=== PATIENT | female | born 1930 | race Caucasian/White ===

== ENCOUNTER → 2016-07-01 | Outpatient (CLI) | payer MEDICARE ==
[2016-07-01 11:53] LABS: INFLUENZA VIRUS TYPE A ANTIBOD Negative (NEGATIVE); INFLUENZA VIRUS TYPE B ANTIBOD Negative (NEGATIVE)
== END ==
LOC: LAB 11:23
PROVIDERS: ATTEND Family Medicine
DX: R50.9 Fever, unspecified (principal); J02.9 Acute pharyngitis, unspecified
CPT/HCPCS: 87502; 87651

== ENCOUNTER → 2016-07-13 | Outpatient (REF) | payer MEDICARE ==
[2016-07-13 13:47] LABS: BILIRUBIN,URINE Negative (Negative); CLARITY,URINE Clear; COLOR,URINE Yellow; GLUCOSE, URINE (UA) Negative (Negative); LEUKOCYTE ESTERASE ,URINE Negative (Negative); UROBILINOGEN,URINE 0.2 mg/dL (0.2-1.0)
== END ==
LOC: LAB 13:26
PROVIDERS: ATTEND Family Medicine
DX: N39.0 Urinary tract infection, site not specified (principal)
CPT/HCPCS: 81003

== ENCOUNTER → 2016-08-26 | Outpatient (REF) | payer MEDICARE | LOC: LAB 17:46 | PROVIDERS: ATTEND Family Medicine | DX: N39.0 Urinary tract infection, site not specified (principal) | CPT/HCPCS: 87088 ==

== ENCOUNTER → 2016-08-28 | Outpatient (CLI) | payer MEDICARE | LOC: RAD 11:01 | PROVIDERS: ATTEND Internal Medicine Cardiovascular Disease | DX: I10 Essential (primary) hypertension (principal); R06.02 Shortness of breath | CPT/HCPCS: 93306 ==

== ENCOUNTER → 2016-09-16 | Outpatient (REF) | payer MEDICARE ==
[~2016-09-16] MED LIST: ASPI-894 PO; CALC500T55 PO; DONE10TA5 PO; FURO-125 PO; IBUP-65 PO; LEVO50TA6 PO; LISI1TAB8 PO; MULT-955 PO; OMG1KC PO; RALO60TA PO; ROSU20TA PO; VIT1TABL26 PO
[2016-09-16 12:15] LABS: ANION GAP 14.1 MEQ/L (3-15)
== END ==
LOC: LAB 11:00
PROVIDERS: ATTEND Internal Medicine Cardiovascular Disease
DX: I50.9 Heart failure, unspecified (principal)
CPT/HCPCS: 80048

== ENCOUNTER 2016-09-22 18:02 | Observation (INO) | payer MEDICARE ==
[~2016-09-22] VITALS: Ht 167.6 cm; Wt 72.2 kg
--- OUTSIDE RECORDS SUMMARY | 2016-09-22 18:07 | XMS REPORT | Continuity of Care Document ---
Author Author [facility] Address Unknown Phone Unavailable Allergies Medications Problems Date Dx Coded Attending Type Code Diagnosis Diagnosed By 07/01/2016 Ot V76.12 OT SCREEN MAMMO-MALIGN NEOPLASM OF THOMAS 07/01/2016 Ot 793.82 INCONCLUSIVE MAMMOGRAM 07/01/2016 Ot 733.00 OSTEOPOROSIS NOS 07/01/2016 АННА PEREZ MD Ot 733.00 OSTEOPOROSIS NOS 07/01/2016 АННА PEREZ MD Ot 294.20 DEMENTIA, UNSPECIFIED, WITHOUT BEHAVIORA 07/01/2016 АННА PEREZ MD Ot 780.97 ALTERED MENTAL STATUS 07/01/2016 АННА PEREZ MD Ot 272.4 HYPERLIPIDEMIA NEC/NOS 07/01/2016 АННА PEREZ MD Ot 401.9 HYPERTENSION NOS 07/01/2016 АННА PEREZ MD Ot 733.00 OSTEOPOROSIS NOS 07/06/2016 АННА PEREZ MD Ot J02.9 ACUTE PHARYNGITIS, UNSPECIFIED 07/06/2016 АННА PEREZ MD Ot R50.9 FEVER, UNSPECIFIED 07/17/2016 АННА PEREZ MD Ot N39.0 URINARY TRACT INFECTION, SITE NOT SPECIF 07/23/2016 АННА PEREZ MD Ot J02.9 ACUTE PHARYNGITIS, UNSPECIFIED 07/23/2016 АННА PEREZ MD Ot R50.9 FEVER, UNSPECIFIED 08/05/2016 АННА PEREZ MD Ot N39.0 URINARY TRACT INFECTION, SITE NOT SPECIF 08/26/2016 АННА PEREZ MD Ot N39.0 URINARY TRACT INFECTION, SITE NOT SPECIF 08/26/2016 Ot V76.12 OT SCREEN MAMMO-MALIGN NEOPLASM OF THOMAS 08/26/2016 Ot 793.82 INCONCLUSIVE MAMMOGRAM 08/26/2016 Ot 733.00 OSTEOPOROSIS NOS 08/26/2016 АННА PEREZ MD Ot 733.00 OSTEOPOROSIS NOS 08/26/2016 АННА PEREZ MD Ot 294.20 DEMENTIA, UNSPECIFIED, WITHOUT BEHAVIORA 08/26/2016 АННА PEREZ MD Ot 780.97 ALTERED MENTAL STATUS 08/26/2016 АННА PEREZ MD Ot 272.4 HYPERLIPIDEMIA NEC/NOS 08/26/2016 АННА PEREZ MD Ot 401.9 HYPERTENSION NOS 08/26/2016 АННА PEREZ MD Ot 733.00 OSTEOPOROSIS NOS 08/26/2016 АННА PEREZ MD Ot J02.9 ACUTE PHARYNGITIS, UNSPECIFIED 08/26/2016 АННА PEREZ MD Ot R50.9 FEVER, UNSPECIFIED 08/26/2016 АННА PEREZ MD Ot N39.0 URINARY TRACT INFECTION, SITE NOT SPECIF 08/26/2016 АННА PEREZ MD Ot N39.0 URINARY TRACT INFECTION, SITE NOT SPECIF 08/27/2016 АННА PEREZ MD, Ot N39.0 URINARY TRACT INFECTION, SITE NOT SPECIF 08/27/2016 АННА PEREZ MD, Ot N39.0 URINARY TRACT INFECTION, SITE NOT SPECIF 08/28/2016 SONA ANTONIO, ANDREW S Ot I10 ESSENTIAL (PRIMARY) HYPERTENSION 08/28/2016 Ot V76.12 OTH SCREEN MAMMO-MALIGN NEOPLASM OF THOMAS 08/28/2016 Ot 793.82 INCONCLUSIVE MAMMOGRAM 08/28/2016 Ot 733.00 OSTEOPOROSIS NOS 08/28/2016 АННА PEREZ MD Ot 733.00 OSTEOPOROSIS NOS 08/28/2016 АННА PEREZ MD Ot 294.20 DEMENTIA, UNSPECIFIED, WITHOUT BEHAVIORA 08/28/2016 АННА PEREZ MD Ot 780.97 ALTERED MENTAL STATUS 08/28/2016 АННА PEREZ MD Ot 272.4 HYPERLIPIDEMIA NEC/NOS 08/28/2016 АННА PEREZ MD Ot 401.9 HYPERTENSION NOS 08/28/2016 АННА PEREZ MD Ot 733.00 OSTEOPOROSIS NOS 08/28/2016 АННА PEREZ MD Ot J02.9 ACUTE PHARYNGITIS, UNSPECIFIED 08/28/2016 АННА PEREZ MD Ot R50.9 FEVER, UNSPECIFIED 08/28/2016 АННА PEREZ MD Ot N39.0 URINARY TRACT INFECTION, SITE NOT SPECIF 08/28/2016 АННА PEREZ MD, Ot N39.0 URINARY TRACT INFECTION, SITE NOT SPECIF 08/28/2016 ANDREW MAGALLANES MD Ot I10 ESSENTIAL (PRIMARY) HYPERTENSION 08/29/2016 Ot V76.12 OTH SCREEN MAMMO-MALIGN NEOPLASM OF THOMAS 08/29/2016 Ot 793.82 INCONCLUSIVE MAMMOGRAM 08/29/2016 Ot 733.00 OSTEOPOROSIS NOS 08/29/2016 АННА PEREZ MD Ot 733.00 OSTEOPOROSIS NOS 08/29/2016 АННА PEREZ MD Ot 294.20 DEMENTIA, UNSPECIFIED, WITHOUT BEHAVIORA 08/29/2016 АННА PEREZ MD Ot 780.97 ALTERED MENTAL STATUS 08/29/2016 АННА PEREZ MD Ot 272.4 HYPERLIPIDEMIA NEC/NOS 08/29/2016 АННА PEREZ MD Ot 401.9 HYPERTENSION NOS 08/29/2016 АННА PEREZ MD Ot 733.00 OSTEOPOROSIS NOS 08/29/2016 АННА PEREZ MD Ot J02.9 ACUTE PHARYNGITIS, UNSPECIFIED 08/29/2016 АННА PEREZ MD Ot R50.9 FEVER, UNSPECIFIED 08/29/2016 АННА PEREZ MD Ot N39.0 URINARY TRACT INFECTION, SITE NOT SPECIF 08/29/2016 ANDREW MAGALLANES MD Ot I10 ESSENTIAL (PRIMARY) HYPERTENSION 08/29/2016 АННА PEREZ MD Ot N39.0 URINARY TRACT INFECTION, SITE NOT SPECIF 08/29/2016 ANDREW MAGALLANES MD Ot I10 ESSENTIAL (PRIMARY) HYPERTENSION 08/29/2016 ANDREW MAGALLANES MD Ot I10 ESSENTIAL (PRIMARY) HYPERTENSION 09/01/2016 АННА PEREZ MD Ot N39.0 URINARY TRACT INFECTION, SITE NOT SPECIF Procedures Results Test Result Range Streptococcus pyogenes antigen detection - 07/01/16 11:31 Streptococcus pyogenes antigen detection Negative Negative General health panel - 07/01/16 11:31 Influenza A or B antigen detection by EIA Negative NEGATIVE UA CULTURE IF INDICATED* - 07/13/16 12:45 COLLECTION METHOD CLEAN CATCH Color of urine by auto Yellow Urine appearance determination Clear Urine pH measurement by automated test strip 7.0 5.0 - 8.0 Specific gravity of urine by automated test strip 1.020 1.005-1.030 Urine protein measurement by test strip (mass/volume) Negative Negative Urine glucose detection by automated test strip Negative Negative Urine erythrocytes count by automated test strip (number/volume) Negative Negative Urine ketones detection by automated test strip Negative Negative Urine nitrite detection by test strip Negative Negative Urine total bilirubin detection by automated test strip Negative Negative Urine urobilinogen measurement by automated test strip (mass/volume) 0.2 0.2-1.0 Urine leukocyte esterase detection by dipstick Negative Negative Urine culture - 08/26/16 16:33 Urine culture RENDON FOR RESULTS: * - NEW RESULT - RESULT WAS MODIFIED AFTER FINAL STATUS SET BASIC METABOLIC PANEL* - 09/16/16 10:55 Sodium measurement 94 70-110 CARBON DIOXIDE 29 22-29 Serum or plasma anion gap 14.1 3-15 BLOOD UREA NITROGEN 8 7-18 CREATININE SERUM 0.95 0.6-1.2 Brucella species antibody panel (IgG, IgM) 8 10-20 Estimated glomerular filtration rate (GFR) 67.2 Estimated glomerular filtration rate (GFR) non- 55.5 CALCIUM 9.0 8.8-10.8 Encounters ACCT No. Visit Date/Time Discharge Status Pt. Type Provider Facility Loc./Unit Complaint [id number] 02/27/2014 08:55:00 2013 23:59:59 CLS Outpatient ANA ANTONIO, [facility] RAD OSTEOPEROSIS [id number] 02/01/2014 10:35:00 2013 23:59:59 CLS Outpatient ANA ANTONIO [facility] LAB XIMENA ARMS LAB DROP OFF [id number] 05/30/2013 12:23:00 2012 23:59:59 CLS Outpatient ANA ANTONIO [facility] RAD MENTAL STAUS CHANGE [id number] 02/21/2013 09:51:00 2012 23:59:59 CLS Outpatient ANA ANTONIO [facility] RAD OSTEOPOROSIS 05282 [id number] 09/16/2016 12:19:00 Document Registration [id number] 08/28/2016 11:01:00 ACT Outpatient SONA ANTONIO, ANDREW [facility] RAD HTN I10; SOB R06.02 [id number] 08/26/2016 17:46:00 ACT Outpatient ANA ANTONIO, [facility] LAB DROP OFF PER LENA AND XIMENA DELANEY [id number] 07/13/2016 13:26:00 ACT Outpatient ANA ANTONIO, [facility] LAB LAB DROP OFF FROM XIMENA DELANEY [id number] 07/01/2016 11:23:00 ACT Outpatient ANA ANTONIO, [facility] LAB [id number] 02/16/2012 10:01:00 Document Registration [id number] 12/23/2011 10:08:00 Document Registration [id number] 12/17/2011 14:00:00 Document Registration
[2016-09-22] MEDS ORDERED: ASPI-894 PO (18:09)
[2016-09-22] MEDS ORDERED: MULT-955 PO (18:09)
[2016-09-22] MEDS ORDERED: LISI1TAB8 PO (18:09)
[2016-09-22] MEDS ORDERED: VIT1TABL26 PO (18:09)
[2016-09-22] MEDS ORDERED: RALO60TA PO (18:09)
[2016-09-22] MEDS ORDERED: IBUP-65 PO (18:09)
[2016-09-22] MEDS ORDERED: DONE10TA5 PO (18:09)
[2016-09-22] MEDS ORDERED: LEVO50TA6 PO (18:09)
[2016-09-22] MEDS ORDERED: FURO-125 PO (18:09)
[2016-09-22] MEDS ORDERED: CALC500T55 PO (18:09)
[2016-09-22] MEDS ORDERED: OMG1KC PO (18:09)
[2016-09-22] MEDS ORDERED: ROSU20TA PO (18:09)
[2016-09-22 18:15] VITALS: BP 138/67
[2016-09-22 18:27] VITALS: BP 138/67
--- NOTE | 2016-09-22 18:39 | History and Physical (E) ---
History & Physical PCP: Edson Ham MD CC: Malaise, decreased appetite, weight loss, abdominal pain HPI Raven Garland is a 86 year old female admitted from clinic 09/22 with concern for decline at home. She has had decreased appetite, low energy, abdominal pain , 5 pound weight loss, increased confusion. No reported nausea/vomiting. PCP checked acute abdominal series. Blood was drawn for lab but none were yet run. Because of underlying dementia and her general current debilitated state, PCP asked for direct admit for further workup and management. On arrival to unit, awake, interactive. Vitals normal and stable. She is a poor historian. States her son took her to PCP today but she isn't really sure why. Says she has been feeling fine. Acknowledges low appetite. Denies fatigue or low energy. Denies nausea or vomiting. Denies abdominal pain. Denies dyspnea. No cough. Denies fever or chills. Denies feeling dehydrated. Denies problems with confusion or memory. Denies any other specific complaints. No family is present to provide additional history. PMH * Actinic keratosis * Acute memory impariment * Asteatosis * Bilateral edema of lower extremities * complete heart block * dementia * gastric pain * HLD * HTN * Hypothyroidism * Lentigo * Osteoporosis * Pacemaker * Unintentional weight loss * History of CHF PSH * Pacemaker * Bilateral knee replacement * ALLERGIES: Please see list at end of report. HOME MEDICATIONS: Please see list at end of report. FH Family history of CAD. SH Lives in her own independent apartment at [facility]. Son lives in [place]. . Homemaker. Never smoker. No alcohol. No drugs. ROS Has poor recall: CONSTITUTION: Denies weight loss but PCP feels she has lost 5 pounds. Decreased appetite. HEENT: No change in vision or hearing. No sores in mouth, sore throat. CV: No chest pain, palpitations. PULM: No cough, shortness of breath, difficulty breathing. GI: No upset stomach, nausea, vomiting, constipation, or diarrhea. No blood in stool. : No dysuria. No blood in urine. MS: No new muscle or joint aches and pains. NEURO: No numbness or tingling. No weakness. INTEG: No rashes, lesions, or sores. PSYCH: No change in mood or behavior. OBJECTIVE Temp 97.7 HR 90 RR 19 SpO2 97% RA BP 138/67 GEN: Awake, alert, pleasant and interactive but not a good historian. HEENT: EOMI, clear sclerae, mildly dry oral mucosa. CV: RRR S1 S2 normal with no murmur LUNGS: CTA B with mildly diminished bases but no R/R/W. ABD: Soft, NT/ND with normal bowel sounds. EXTR: No C/C/E. Normal peripheral pulses. INTEG: No rash. Age related changes. Warm, dry, well-perfused. NEURO: No focal motor neuro deficit. Mild psychomotor slowing. Weight: 73.6 kg LABS: PENDING IMAGING 09/22/16 KUB: (Reviewed from office.) Constipation but no obstructive process. ASSESSMENT Raven Pierson is a 86 year old female admitted from clinic 09/22 with malaise, increased confusion, reports of intermittent abdominal pain, decreased appetite , and unintentional weight loss. She had evidence of constipation on x-ray in office but no other workup was yet completed before arrival. PLAN * Malaise: Broad differential. Check labs. Gather additional history from family if available. * Unintentional Weight Loss: Broad differential. Check labs, CXR. Manager Performance for calorie count. Assess food security. * Abdominal Pain: None apparent on admission but has some evidence for constipation. Treat constipation. Acetaminophen for pain. * Deconditioning: PT/OT eval and treat. Request SLUMS, MARLENY. * F/E/N: General diet. I&O, daily weight. Manager Performance consult. * Prophylaxis: Enoxaparin * Code Status: Full * Dispo: Observation, expecting 48 hour stay. CHRONIC ISSUES * Hypothyroidism: Check TSH. Levothyroxine * Dementia: Donepezil * Osteoporosis: Raloxifene * HLD: Atorvastatin (sub for rosuvastatin) * CHF: Uncertain type. Not apparently exacerbated. Not on beta carlos a. Continue lisinopril. Check NT-pro-BNP. * HTN: Lisinopril, HCTZ. Allergies/Home Medications Reported Home Medications Scheduled Aspirin (Efren Chewable) 81 MG PO DAILY@1200 (Reported) Calcium Carbonate (Calcium) 1,000 MG PO DAILY@1200 (Reported) Donepezil HCl (Aricept) 10 MG PO DAILY (Reported) Furosemide (Lasix) 20 MG PO DAILY (Reported) Levothyroxine Sodium (Levothyroxine Sodium) 50 MCG PO DAILY@0700 (Reported) Lisinopril/Hydrochlorothiazide (Lisinopril-HCTZ 20-12.5 mg Tab) 2 TAB PO DAILY@ 1200 (Reported) Multivitamin (Multi-Vitamin Daily) 1 TAB PO DAILY@1200 (Reported) [place] 3 Polyunsat Fatty Acids (Fish Oil) 1,000 MG PO DAILY@1200 (Reported) Raloxifene HCl (Evista) 60 MG PO DAILY@1200 (Reported) Rosuvastatin Calcium (Crestor) 20 MG PO DAILY@1200 (Reported) Vit A,C & E/Lutein/Minerals (Ocuvite Tablet) 1 TAB PO DAILY@1200 (Reported) Scheduled PRN Ibuprofen (Ibuprofen IB) 200-400 MG PO QID PRN PRN PAIN (Reported) Copies to: End of Report . TATE MARTIN MD Sep 22, 2016 18:23
[2016-09-22] MEDS ORDERED: MAGNESIUM HYDROXIDE 80MG/ML (MILK OF MAGNESIA) 30 ML UDC PO PRN (18:45)
[2016-09-22] MEDS ORDERED: PROMETHAZINE HCL INJ 12.5 MG in SODIUM CHLORIDE 25 ML IV PRN (18:45)
[2016-09-22] MEDS ORDERED: ACETAMINOPHEN 325 MG TAB (TYLENOL) PO PRN (18:45)
[2016-09-22] MEDS ORDERED: ONDANSETRON 4 MG (ZOFRAN) ORAL DISSOLVE TAB PO PRN (18:45)
[2016-09-22] MEDS ORDERED: MAG HYDROX/AL HYDROX/SIMETH 200-200-20/5 ML (MAG-AL PLUS) 30 ML UDC PO PRN (18:45)
[2016-09-22] MEDS ORDERED: CALCIUM CARBONATE CHEWABLE 300 MG (TUMS) TABLET PO PRN (18:45)
[2016-09-22] MEDS ORDERED: POLYETHYLENE GLYCOL 17 GM (MIRALAX) PACKET ONE (19:12)
[2016-09-22] MEDS: POLYETHYLENE GLYCOL 17 GM (MIRALAX) PACKET PO SCH (19:15)
[2016-09-22 19:16] LABS: BASOPHILS % (AUTO) 0 % (0-2); EOSINOPHILS % (AUTO) 0 % (0-4); LYMPHOCYTES # (AUTO) 1.3 X10^3; MEAN CORPUSCULAR HEMOGLOBIN 29.1 PG (26.0-34.0); MEAN CORPUSCULAR HGB CONC 32.7 g/dL (31.0-37.0); MEAN CORPUSCULAR VOLUME 89 FL (80-100); MEAN PLATELET VOLUME 10.6 FL (6.0-9.5); MONOCYTES # (AUTO) 0.9 X10^3; MONOCYTES % (AUTO) 7 % (3-11); NEUTROPHILS # (AUTO) 10.7 X10^3; NEUTROPHILS % (AUTO) 83 % (51-67); PLATELET COUNT 360 10^3uL (150-450); WHITE BLOOD COUNT 12.92 10^3uL (4.0-11.0)
[2016-09-22 20:10] LABS: ERYTHROCYTE SEDIMENTATION RT* 72 mm/hr (0-23)
[2016-09-22 20:15] LABS: ANION GAP 19.2 MEQ/L (3-15)
[2016-09-22 20:16] LABS: CALCULATED IONIZED CALCIUM 4.1 mg/dL (3.8-4.6); TOTAL PROTEIN 7.9 g/dL (6.4-8.5)
[2016-09-22 20:17] LABS: ALBUMIN 4.1 g/dL (3.4-5.0)
[2016-09-22] MEDS: DOCUSATE SODIUM 100 MG (COLACE) CAP PO SCH (21:06)
[2016-09-23 00:04] VITALS: BP 97/54
[2016-09-23 05:51] LABS: BILIRUBIN,URINE Negative (Negative); CLARITY,URINE Clear; COLOR,URINE Yellow; GLUCOSE, URINE (UA) Negative (Negative); LEUKOCYTE ESTERASE ,URINE 1+ (Negative); PH,URINE 7.5 (5.0 - 8.0); UROBILINOGEN,URINE 0.2 mg/dL (0.2-1.0)
[2016-09-23] MEDS: LEVOTHYROXINE 50 MCG (LEVOTHROID) TABLET PO SCH (06:04)
[2016-09-23 08:13] LABS: RBC,URINE None Seen /HPF; URINE CENTRIFUGED VOLUME <10mL Unspun
[2016-09-23 08:23] VITALS: BP 130/50
[2016-09-23] MEDS ORDERED: HYDROCHLOROTHIAZIDE 25 MG (HCTZ) TAB PO SCH (09:00)
[2016-09-23 09:06] LABS: BASOPHILS % (AUTO) 0 % (0-2); EOSINOPHILS # (AUTO) 0.1 10^3uL; EOSINOPHILS % (AUTO) 1 % (0-4); LYMPHOCYTES # (AUTO) 1.3 X10^3; MEAN CORPUSCULAR HEMOGLOBIN 28.7 PG (26.0-34.0); MEAN CORPUSCULAR HGB CONC 32.9 g/dL (31.0-37.0); MEAN CORPUSCULAR VOLUME 87 FL (80-100); MEAN PLATELET VOLUME 9.9 FL (6.0-9.5); MONOCYTES # (AUTO) 0.8 X10^3; MONOCYTES % (AUTO) 7 % (3-11); NEUTROPHILS # (AUTO) 9.2 X10^3; NEUTROPHILS % (AUTO) 80 % (51-67); PLATELET COUNT 322 10^3uL (150-450); WHITE BLOOD COUNT 11.52 10^3uL (4.0-11.0)
[2016-09-23] MEDS: OMEGA-3 ACID ETHYL ESTERS 1 GM (LOVAZA) CAPSULE PO SCH (09:25)
[2016-09-23] MEDS: MULTIVITAMIN W/MINERALS (THERAGRAN M) TABLET PO SCH (09:25)
[2016-09-23] MEDS: ATORVASTATIN 10 MG (LIPITOR) TABLET PO SCH (09:26)
[2016-09-23] MEDS: lisINopril 20 MG (PRINIVIL) TABLET PO SCH (09:26)
[2016-09-23] MEDS: DOCUSATE SODIUM 100 MG (COLACE) CAP PO SCH ×2 (09:26→20:13)
[2016-09-23] MEDS: DONEPEZIL 10 MG (ARICEPT) TAB PO SCH (09:26)
[2016-09-23] MEDS: ENOXAPARIN 40 MG/0.4 ML (LOVENOX) SYR SC SCH (09:27)
[2016-09-23] MEDS: POLYETHYLENE GLYCOL 17 GM (MIRALAX) PACKET PO SCH (09:27)
--- NOTE | 2016-09-23 09:28 | Diagnostic Imaging Report ---
INDICATION: Malaise, weight loss. COMPARISON: None available. FINDINGS: Right hemidiaphragm eventration; otherwise, the lung volumes are normal. No focal airspace disease. No pleural effusion or pneumothorax. Cardiomegaly with left pectoral transvenous pacemaker with leads in the right atrium and right ventricle. Atherosclerosis of the aorta. Age related degenerative changes in the spine. IMPRESSION: 1. No acute cardiopulmonary process. 2. Cardiomegaly with left pectoral pacemaker in place. Dictated by: Dictated on workstation # [id number]
[2016-09-23 09:33] LABS: ANION GAP 16.6 MEQ/L (3-15)
--- NOTE | 2016-09-23 10:18 | Progress Note (E) ---
Progress Note SUBJECTIVE Overnight, no major issues. On admit, WBC was 12.92 but this was 11.52 this AM. No bandemia. ESR high at 72. CRP 8.80. K initially low at 2.9 but no intervention was given overnight. Improved spontaneously to 3.2 this AM. Magnesium pending. HCTZ being held. CXR showed no acute changes. SLUMS this AM showed very poor score of 8/30. Son is present and additional history obtained. She lives at [facility] so has plenty of assistance and does not have food insecurity. Has indeed had some constipation. Has had malaise, low appetite, but change has just been over the last week. Not aware of any other complaints. Updated son on findings, plan of care. OBJECTIVE Vital Signs Date Time Temp Pulse Resp B/P Pulse Ox O2 Delivery O2 Flow Rate FiO2 09/23/16 08:23 96.2 69 18 130/50 95 Room air I & O 09/22/16 09/23/16 Cumulative From/Thru 19:00 07:00 09/22/16 18:15 - 09/23/16 06:09 Intake Total 574 ml 574 ml Output Total 50 ml 50 ml Balance 524 ml 524 ml GEN: Sitting in chair. Tired, but pleasant and interactive. HEENT: EOMI, clear sclerae, mildly dry oral mucosa. CV: RRR S1 S2 normal with no murmur LUNGS: CTA B with mildly diminished bases but no R/R/W. ABD: Soft, NT/ND with normal bowel sounds. EXTR: No C/C/E. Normal peripheral pulses. INTEG: No rash. Age related changes. Warm, dry, well-perfused. Dry skin on legs. NEURO: No focal motor neuro deficit. Mild psychomotor slowing. Lab-Past 14 Days, 35 Results 09/22/16 17:12: Alanine Aminotransferase (ALT/SGPT) 38, Albumin 4.1#, Albumin/Globulin Ratio 1.078L, Alkaline Phosphatase 85, Anion Gap 19.2H, Aspartate Amino Transf (AST/ SGOT) 32, BUN/Creatinine Ratio 11, Blood Urea Nitrogen 11, C-Reactive Protein 8.80H, Calcium Level 9.8, Calcium/Ionized Calcium Ratio 4.1, Calculated Osmolality 268L, Carbon Dioxide Level 30H, Chloride Level 93L, Creatinine 0.99, Estimat Glomerular Filtration Rate 64.1, Estimated GFR (Non- 52.9, Glucose Level 104, KS-Auh-S-Type Natriuretic Peptide 243, Potassium Level 2.9L, Sodium Level 139, Thyroid Stimulating Hormone (TSH) 2.17#, Total Bilirubin 0.7#, Total Protein 7.9 09/22/16 17:22: Basophils # (Auto) 0.0, Basophils (%) (Auto) 0, Eosinophils # (Auto) 0.0, Eosinophils (%) (Auto) 0, Erythrocyte Sedimentation Rate 72H, Hematocrit 41.60, Hemoglobin 13.6, Lymphocytes # (Auto) 1.3, Lymphocytes (%) (Auto) 10L, Mean Corpuscular Hemoglobin 29.1, Mean Corpuscular Hemoglobin Concent 32.7, Mean Corpuscular Volume 89, Mean Platelet Volume 10.6H, Monocytes # (Auto) 0.9, Monocytes (%) (Auto) 7, Neutrophils # (Auto) 10.7, Neutrophils (%) (Auto) 83H, Platelet Count 360, Red Blood Count 4.68, Red Cell Distribution Width 13.7, White Blood Count 12.92H 09/23/16 05:20: Urine Bacteria None seen, Urine Bilirubin Negative, Urine Blood Negative, Urine Clarity Clear, Urine Collection Type Clean catch, Urine Color Yellow, Urine Glucose (UA) Negative, Urine Ketones 1+H, Urine Leukocyte Esterase 1+H, Urine Microscopic RBC None seen, Urine Nitrite Negative, Urine Protein Negative, Urine Specific [place] 1.015, Urine Squamous Epithelial Cells 0-2, Urine Urobilinogen 0.2, Urine WBC 5-10H, Urine pH 7.5, Volume Urine Centrifuged <10ml unspun 09/23/16 08:56: Anion Gap 16.6H, BUN/Creatinine Ratio 13, Blood Urea Nitrogen 11, Calcium Level 9.4, Carbon Dioxide Level 30H, Chloride Level 95L, Creatinine 0.84, Estimat Glomerular Filtration Rate 77.4, Estimated GFR (Non- 64.0, Glucose Level 105, Potassium Level 3.2L, Sodium Level 139, Basophils # (Auto) 0.0, Basophils (%) (Auto) 0, Eosinophils # (Auto) 0.1, Eosinophils (%) (Auto) 1 , Hematocrit 39.50, Hemoglobin 13.0, Lymphocytes # (Auto) 1.3, Lymphocytes (%) ( Auto) 11L, Mean Corpuscular Hemoglobin 28.7, Mean Corpuscular Hemoglobin Concent 32.9, Mean Corpuscular Volume 87, Mean Platelet Volume 9.9H, Monocytes # (Auto) 0.8, Monocytes (%) (Auto) 7, Neutrophils # (Auto) 9.2, Neutrophils (%) (Auto) 80H, Platelet Count 322, Red Blood Count 4.53, Red Cell Distribution Width 13.5, White Blood Count 11.52H, Magnesium Level [Pending] IMAGING 09/22/16 CHEST PA/LAT (2 VIEW)* INDICATION: Malaise, weight loss. COMPARISON: None available. FINDINGS: Right hemidiaphragm eventration; otherwise, the lung volumes are normal. No focal airspace disease. No pleural effusion or pneumothorax. Cardiomegaly with left pectoral transvenous pacemaker with leads in the right atrium and right ventricle. Atherosclerosis of the aorta. Age related degenerative changes in the spine. IMPRESSION: 1. No acute cardiopulmonary process. 2. Cardiomegaly with left pectoral pacemaker in place. 09/22/16 KUB: (Reviewed from office.) Constipation but no obstructive process. ASSESSMENT Raven Pierson is a 86 year old female admitted from clinic 09/22 with malaise, increased confusion, reports of intermittent abdominal pain, decreased appetite , and unintentional weight loss. She had evidence of constipation on x-ray in office, had hypokalemia, evidence for mild UTI, and she had elevation of ESR and CRP. PLAN * Malaise: Broad differential. CRP and ESR elevated K is mildly low but otherwise no definitive etiology identified thus far. * Unintentional Weight Loss: Broad differential. Protein and albumin were not low. Hypokalemia noted but other labs reassuring. Reproduction Artist for calorie count. Assess food security. * Leukocytosis, Elevated ESR, Elevated CRP: Uncertain cause. Had 1+ LE on UA but denied dysuria. Treat empirically for UTI x 3 days. If all not improving, consider additional workup. * Simple UTI: On the basis of UA. Allergy to PCN and sulfa noted. Avoid quinolone due to dementia. Cefdinir x 3 days. * Abdominal Pain: None apparent on admission but has some evidence for constipation. Treat constipation. Acetaminophen for pain. * Hypokalemia: Adverse effect from HCTZ? Was reportedly getting furosemide prior to this admit. Hold HCTZ. Check Mg. PO supplement. Monitor trend. * Deconditioning: PT/OT eval and treat. Request DONATO, MARLENY. * F/E/N: General diet. I&O, daily weight. Reproduction Artist consult. * Prophylaxis: Enoxaparin * Code Status: Full * Dispo: Observation, expecting 48 hour stay. May need to make other living arrangements if not safe to return home. CHRONIC ISSUES * Hypothyroidism: TSH normal. Levothyroxine * Dementia: Donepezil * Osteoporosis: Raloxifene * HLD: Atorvastatin (sub for rosuvastatin) * CHF: Uncertain type. Not apparently exacerbated. Not on beta carlos a. Continue lisinopril. NT-pro-BNP not elevated. Check with PCP's office for prior echo. * HTN: Lisinopril, HCTZ. TATE MARTIN MD Sep 23, 2016 10:02
[2016-09-23] MEDS: ASPIRIN 81 MG CHEW (LOW-DOSE) PO SCH (11:34)
[2016-09-23] MEDS: CEFDINIR 300 MG (OMNICEF) CAPSULE PO SCH ×2 (11:34→20:13)
[2016-09-23] MEDS: VIT A,C & E/LUTEIN/MINERALS (I-VITE) TABLET PO SCH (11:34)
[2016-09-23] MEDS: POTASSIUM CHLORIDE ER 20 MEQ TABLET PO SCH ×2 (11:34→18:57)
[2016-09-23] MEDS ORDERED: NON-FORMULARY MEDICATION 1 EA EA (Multivitamin (Multi-Vitamin Daily) 1 TAB) PO SCH (12:00)
[2016-09-23] MEDS ORDERED: NS FLUSH 3 ML PRN IV (12:50)
[2016-09-23] MEDS ORDERED: NS FLUSH 10 ML PRN IV (12:50)
--- NOTE | 2016-09-23 13:02 | Physical Therapy Evaluation(E) ---
Plan of Care STG: Plan-Treatment Functional: Amb Safe w/ AD on level STG Time Frame: 3 Days Goals Discussed/Agreed: Yes Plan: Balance, Endurance, Gait & Transfer Training, Neuro Re-Education, Progressive Ambulation, Transfer Training, Therapy Excercise Discharge Recommendations: TCU/Skilled NH (Patient demonstrates impaired balance, safety awareness and is not safe to return to her prior living situation at this time. She would benefit from additional therapy services. ) Aware of Dx and Prognosis: Yes Aware of Risk & Benefit: Yes To be Seen: Daily Wednesday-Wednesday Initial Evaluation Service Date/Time 09/23/16, 13:01 Primary Diagnosis: (1) Malaise ICD Code: R53.81 (2) Unintentional weight loss ICD Code: R63.4 Treatment Diagnosis: (1) Malaise ICD Code: R53.81 (2) Unintentional weight loss ICD Code: R63.4 Onset Date: 09/22/2016 Start of Care Date: Sep 23, 2016 Precaution/Isolation: Standard Precautions Fall Level: Low Risk 25-50 Initial Assessment Reason for Rehab: Increase Strength, Increase Balance, Increase AROM, Increase Transfers, Increase Endurance Medical History: CHF, Other (complete heart block, lentigo, osteoporosis, pacemaker ) Pain Location/Comment Patient denies pain . Prior Level of Function The patient lives in independent living duplex at [facility]. She denies using and assistive device. This date patient is alert but not oriented to time, date , location. Rehabilitation Potential: Fair Comment Patient is very cooperative with therapy and wants to improve. Assistive Device: Handheld Assist Distance Walked in Feet 122 feet without AD. Assist: Min Assist/Contact Guard Gait Description: Unsteady, Decreased Mily, Slow, Short Step Length, Uneven Weight Shift Gait Limitations: Fatigue, Decreased Strength, Decreased Balance Assessment/Goals Initial Transfer Assessment Rolling: Not Assessed/NA Sit-Supine: Not Assessed/NA Sitting Edge of Bed: Supervision or setup Supine-Sit: Not Assessed/NA Sit-Stand from Bed: Minimal Assistance Stand-Sit: Minimal Assistance Ambulation: Minimal Assistance Distance Walked in Feet 122 feet Transfer Short Term Goals Rolling: Contact Guard Assist Sit-Supine: Contact Guard Assist Sitting Edge of Bed: Modified [place] Supine-Sit: Contact Guard Assist Sit-Stand from bed: Contact Guard Assist Stand-Sit: Contact Guard Assist Ambulation: Contact Guard Assist Distance to Walk in Feet 200 feet with assistive device. Treatments Treatments Repetition: 2 x 10 Exercise: AP, LAQ, Hip Flexion Ambulation Weight Bearing Status: Full Assistive Device: Handheld Assist Gait Assist: Min Assist/Contact Guard Gait Training: Limitations: Fatigue, Decreased Strength, Decreased Balance Coding Time In: 1124 Time Out: 1150 Total Minutes: 26 Charges: 22380 Eval< 20 min, 08539 Gait Training 15 mi Rehab G Codes Current Functional Status: S7370-[place] Current Modifier: CJ 20% but <40% (Patient scores a 17/28 on the Tinetti Balance Assessment. ) Projected Functional Goal: C1725-Oyeyrdme Goal Modifier: CJ 20% but <40% KRISTINA BERG PT Sep 23, 2016 13:02
[2016-09-23 15:09] VITALS: BP 130/90
--- NOTE | 2016-09-23 17:26 | OT Therapy Evaluation (E) ---
POC Plan of Care Problems Identified: Activity Tolerance, ADLs, Balance, Cognition, Judgment, Lt UE Strength, Rt UE Strength, Safety Awareness Plan: Evaluation-OT, ADL/Self Care Management, Therapy Exercises, Therapy Activities, Pt/Family/Staff Education Frequency of OT: Five times weekly Duration of OT: Other (3 days ) Therapy to Include: ADL training, Balance with ADLs, Pt/family education, Therapeutic activities, UE strengthing Discharge Recommendations: Assisted Living Pt would benefit from skilled occupational therapy services to improve independence with self care tasks and increase safety awareness. Pt. Aware of Dx and Prognosis: No Goals: Discussed with patient Short Term Goals STG #1 Pt will participate in 15 min of ther-ex with 4 or less rest breaks. Mcfp Goals LTG Time Frame: 3 Days Will Dress Upper Extremity: Independently Will Dress Lower Extremity: Independently Will Bathe Self: With Setup/SBA Will do Toilet Transfers: With Setup/SBA Will do Toilieting: With Setup/SBA Will Perform Kitchen Mobility: With Setup/SBA LTG # 1 Pt will participate in 5 minute functional standing activity with modified independence and demonstration of good safety awareness. Inital Evaluation/General Service Date/Time 09/23/16, 17:26 Primary Diagnosis: Treatment Diagnosis: Precaution/Isolation: Standard Precautions Fall Level: Low Risk 25-50 Reason for Referral: Cognitive Assmt (SLUMS AND MARLENY), Evaluation and Treat Pertinent Medical History: Other (acute memory impairment, bilateral lower edema, dementia, HLD, HTN, OA, pacemaker) Pain Level: 0 Oxygen Needed: Room air Rehabilitation Potential: Fair Rational for Skilled Treatment: Assistance with ADLs, Deconditioning, Maximize Safety, Prevent Falls Living Status Prior to Admit: Alone (Independent living at the [facility]. [place] stating where she lived. ) Prior Level of Function: Independent ADLs Pt reports son assisting with IADL tasks. Pt reports having a lady come in to help with cooking and cleaning. Says she sometimes eats at the [employer]. Support Persons: Adult Child Entry Into Home: Level Entry Shower and Tub Type: Walk in/curtain-grab bars Toilet Type: Standard with grab bars Comment Pt demonstrated difficulty describing home set up and reports she cannot remember. Pt reports no use of assistive device for functional mobility. No history of recent falls. Current Function Assessment Mental Status Patient Orientation: Person Mental Status: Alert, Confused Cognition Attention: Impaired Memory: Impaired Safety/Judgement: Impaired Assesment and Score: SLUMS (Pt scored a 8/30 demonstrating significant diffuclty with orientation, working memory, delayed recall and visuospatial and executive skills. ) Visual/Perceptual Skills Glassess: Yes Hearing: Impaired Hand Dominance Hand Dominance: Right ROM/Strength Range of Motion : ROM: WNL Strength Comment BUR 4-/5 Neurological Coordination: Minimally impaired Endurance Activity Endurance: Fair Bed Mobility/Transfers Sit to Stand: CGA Chair Transfer: CGA ADLs Hand : Feeding Self: Independent Grooming: Grooming Status: Setup/SBA, Verbal cues Dressing Dressing: Minimum assist, Verbal cues Bathing Shower/Bench Transfer Ability: CGA Bathing- Type of Assistance: Moderate Assist Toileting Toilet Hygiene: Moderate Assist Toilet Transfer Ability: CGA Additional Assessment/Comments The patient presents with decreased strength, decreased safety awareness which impacts patient's ability to complete self care tasks independently and safely. Pt presents with co-morbidities affecting occupational performance. Required no modification of task during evaluation placing pt at a low complexity level. CPT/G Codes Time In: 8:20 Time Out: 8:53 Total Minutes: 33 ( eval) CPT Codes: 50516 Eval< 20 minutes TIAGO DAVID OT Sep 23, 2016 17:26
[2016-09-24 00:23] VITALS: BP 148/65
[2016-09-24] MEDS: LEVOTHYROXINE 50 MCG (LEVOTHROID) TABLET PO SCH (06:06)
[2016-09-24 06:31] LABS: BASOPHILS % (AUTO) 0 % (0-2); EOSINOPHILS # (AUTO) 0.1 10^3uL; EOSINOPHILS % (AUTO) 1 % (0-4); LYMPHOCYTES # (AUTO) 1.3 X10^3; MEAN CORPUSCULAR HEMOGLOBIN 28.7 PG (26.0-34.0); MEAN CORPUSCULAR HGB CONC 32.3 g/dL (31.0-37.0); MEAN CORPUSCULAR VOLUME 89 FL (80-100); MEAN PLATELET VOLUME 10.3 FL (6.0-9.5); MONOCYTES # (AUTO) 0.8 X10^3; MONOCYTES % (AUTO) 8 % (3-11); NEUTROPHILS # (AUTO) 7.6 X10^3; NEUTROPHILS % (AUTO) 77 % (51-67); PLATELET COUNT 314 10^3uL (150-450); WHITE BLOOD COUNT 9.85 10^3uL (4.0-11.0)
[2016-09-24 06:43] LABS: ALBUMIN 3.3 g/dL (3.4-5.0); ANION GAP 13.8 MEQ/L (3-15); MAGNESIUM* 2.4 mg/dL (1.6-2.3)
[2016-09-24 07:51] VITALS: BP 124/46
[2016-09-24] MEDS: OMEGA-3 ACID ETHYL ESTERS 1 GM (LOVAZA) CAPSULE PO SCH (08:17)
[2016-09-24] MEDS: NS FLUSH 3 ML DAILY IV SCH (08:18)
[2016-09-24] MEDS: ENOXAPARIN 40 MG/0.4 ML (LOVENOX) SYR SC SCH (08:18)
[2016-09-24] MEDS: lisINopril 20 MG (PRINIVIL) TABLET PO SCH (08:18)
[2016-09-24] MEDS: CEFDINIR 300 MG (OMNICEF) CAPSULE PO SCH ×2 (08:19→21:05)
[2016-09-24] MEDS: DOCUSATE SODIUM 100 MG (COLACE) CAP PO SCH ×2 (08:19→21:05)
[2016-09-24] MEDS: POTASSIUM CHLORIDE ER 20 MEQ TABLET PO SCH (08:19)
[2016-09-24] MEDS: POLYETHYLENE GLYCOL 17 GM (MIRALAX) PACKET PO SCH (08:19)
[2016-09-24] MEDS: MULTIVITAMIN W/MINERALS (THERAGRAN M) TABLET PO SCH (08:19)
[2016-09-24] MEDS: DONEPEZIL 10 MG (ARICEPT) TAB PO SCH (08:19)
[2016-09-24] MEDS: ATORVASTATIN 10 MG (LIPITOR) TABLET PO SCH (08:19)
[2016-09-24] MEDS: ASPIRIN 81 MG CHEW (LOW-DOSE) PO SCH (12:55)
[2016-09-24] MEDS: VIT A,C & E/LUTEIN/MINERALS (I-VITE) TABLET PO SCH (12:55)
--- NOTE | 2016-09-24 13:54 | PT Daily Note Inpatient (E) ---
PT Daily Treatment Service Date/Time 09/24/16, 13:50 Medical Diagnosis: (1) Malaise ICD Code: R53.81 (2) Unintentional weight loss ICD Code: R63.4 Physical Therapy: (1) Malaise ICD Code: R53.81 (2) Unintentional weight loss ICD Code: R63.4 Precaution/Isolation: Standard Precautions Fall Level: Low Risk 25-50 Subjective Pt just finished lunch, pleasant and cheerful, states she does exercises in her home with friends, agrees to PT Pain Level: 0 Oxygen Delivery: Room air O2 liters/minute: 0 Treatments Sit, Stand, Supine: Sitting, Long Sitting Extremity: Both Lower Extremity Assistance: AROM Repetition: 1 x 15 Exercise: AP, Heel Slides, Hip Abduction, SLR, LAQ, Hip Flexion, External Rotation, Internal Rotation Transfers Supine-Sit: Supervision or setup Sit-Stand from bed: Contact Guard Assist Stand-Sit: Contact Guard Assist Gait Ambulation: Contact Guard Assist Distance Walked: 100' Weight Bearing Status: Full Assistive Device: None (uses handrails prn) Gait Assist: Min Assist/Contact Guard Gait Description: Decreased Mily, Slow, Short Step Length, Flexed Trunk Gait Training: Limitations: Fatigue Education/Plan Assessment Tolerates treatment well, requires tactile cueing for seated exercises Safety Awareness: Impaired Response to Treatment: Improving Plan Cont POC Patient will be seen: Daily Wednesday-Wednesday Discharge Recommendations: Assisted Living Coding Time In: 1324 Time Out: 1347 Total Minutes: 23 Charges: 71428 Exercise Therp BALAJI Villalpando ROLLING CHAIR PUSHER Sep 24, 2016 13:53
[2016-09-24 16:02] VITALS: BP 152/60
--- NOTE | 2016-09-24 16:23 | Progress Note (E) ---
Progress Note SUBJECTIVE Overnight, no major issues reported. Leukocytosis resolved. K improved to 3.4. Urine culture grew normal urogenital johnathan. Vitals remain stable. Has had 4 BM. On exam, resting in chair. Appears tired but stirs readily to exam. She is pleasantly disoriented. Denies any new complaints. Reoriented her to findings and plan of care. Vital Signs Date Time Temp Pulse Resp B/P Pulse Ox O2 Delivery O2 Flow Rate FiO2 09/24/16 07:51 98.0 70 18 124/46 96 Room air I & O 09/23/16 09/24/16 Cumulative From/Thru 19:00 07:00 09/22/16 18:15 - 09/24/16 06:22 Intake Total 200 ml 437 ml 1211 ml Output Total 200 ml 550 ml 800 ml Balance 0 ml -113 ml 411 ml GEN: Sitting in chair. Tired, but pleasant and interactive. HEENT: EOMI, clear sclerae, mildly dry oral mucosa. CV: RRR S1 S2 normal with no murmur LUNGS: CTA B with mildly diminished bases but no R/R/W. ABD: Soft, NT/ND with normal bowel sounds. EXTR: Trace ankle edema. Normal peripheral pulses. INTEG: No rash. Age related changes. Warm, dry, well-perfused. Dry skin on legs. NEURO: No focal motor neuro deficit. Mild psychomotor slowing. Lab-Past 14 Days, 35 Results 09/22/16 17:12: Alanine Aminotransferase (ALT/SGPT) 38, Albumin 4.1#, Albumin/Globulin Ratio 1.078L, Alkaline Phosphatase 85, Anion Gap 19.2H, Aspartate Amino Transf (AST/ SGOT) 32, BUN/Creatinine Ratio 11, Blood Urea Nitrogen 11, C-Reactive Protein 8.80H, Calcium Level 9.8, Calcium/Ionized Calcium Ratio 4.1, Calculated Osmolality 268L, Carbon Dioxide Level 30H, Chloride Level 93L, Creatinine 0.99, Estimat Glomerular Filtration Rate 64.1, Estimated GFR (Non- 52.9, Glucose Level 104, TU-Sjc-D-Type Natriuretic Peptide 243, Potassium Level 2.9L, Sodium Level 139, Thyroid Stimulating Hormone (TSH) 2.17#, Total Bilirubin 0.7#, Total Protein 7.9 09/22/16 17:22: Basophils # (Auto) 0.0, Basophils (%) (Auto) 0, Eosinophils # (Auto) 0.0, Eosinophils (%) (Auto) 0, Erythrocyte Sedimentation Rate 72H, Hematocrit 41.60, Hemoglobin 13.6, Lymphocytes # (Auto) 1.3, Lymphocytes (%) (Auto) 10L, Mean Corpuscular Hemoglobin 29.1, Mean Corpuscular Hemoglobin Concent 32.7, Mean Corpuscular Volume 89, Mean Platelet Volume 10.6H, Monocytes # (Auto) 0.9, Monocytes (%) (Auto) 7, Neutrophils # (Auto) 10.7, Neutrophils (%) (Auto) 83H, Platelet Count 360, Red Blood Count 4.68, Red Cell Distribution Width 13.7, White Blood Count 12.92H 09/23/16 05:20: Urine Bacteria None seen, Urine Bilirubin Negative, Urine Blood Negative, Urine Clarity Clear, Urine Collection Type Clean catch, Urine Color Yellow, Urine Glucose (UA) Negative, Urine Ketones 1+H, Urine Leukocyte Esterase 1+H, Urine Microscopic RBC None seen, Urine Nitrite Negative, Urine Protein Negative, Urine Specific Fossil 1.015, Urine Squamous Epithelial Cells 0-2, Urine Urobilinogen 0.2, Urine WBC 5-10H, Urine pH 7.5, Volume Urine Centrifuged <10ml unspun 09/23/16 08:56: Anion Gap 16.6H, BUN/Creatinine Ratio 13, Blood Urea Nitrogen 11, Calcium Level 9.4, Carbon Dioxide Level 30H, Chloride Level 95L, Creatinine 0.84, Estimat Glomerular Filtration Rate 77.4, Estimated GFR (Non- 64.0, Glucose Level 105, Potassium Level 3.2L, Sodium Level 139, Basophils # (Auto) 0.0, Basophils (%) (Auto) 0, Eosinophils # (Auto) 0.1, Eosinophils (%) (Auto) 1 , Hematocrit 39.50, Hemoglobin 13.0, Lymphocytes # (Auto) 1.3, Lymphocytes (%) ( Auto) 11L, Mean Corpuscular Hemoglobin 28.7, Mean Corpuscular Hemoglobin Concent 32.9, Mean Corpuscular Volume 87, Mean Platelet Volume 9.9H, Monocytes # (Auto) 0.8, Monocytes (%) (Auto) 7, Neutrophils # (Auto) 9.2, Neutrophils (%) (Auto) 80H, Platelet Count 322, Red Blood Count 4.53, Red Cell Distribution Width 13.5, White Blood Count 11.52H, Magnesium Level 2.0 09/24/16 05:40: Albumin 3.3L, Anion Gap 13.8, Basophils # (Auto) 0.0, Basophils (%) (Auto) 0, Blood Urea Nitrogen 9, Calcium Level 8.7L, Carbon Dioxide Level 33H, Chloride Level 98, Creatinine 0.94, Eosinophils # (Auto) 0.1, Eosinophils (%) (Auto) 1, Estimat Glomerular Filtration Rate 68.0, Estimated GFR (Non- 56.2, Glucose Level 92, Hematocrit 37.10, Hemoglobin 12.0, Lymphocytes # (Auto) 1.3, Lymphocytes (%) (Auto) 13L, Magnesium Level 2.4H, Mean Corpuscular Hemoglobin 28.7, Mean Corpuscular Hemoglobin Concent 32.3, Mean Corpuscular Volume 89, Mean Platelet Volume 10.3H, Monocytes # (Auto) 0.8, Monocytes (%) ( Auto) 8, Neutrophils # (Auto) 7.6, Neutrophils (%) (Auto) 77H, Phosphorus Level 3.2, Platelet Count 314, Potassium Level 3.4L, Red Blood Count 4.18, Red Cell Distribution Width 13.6, Sodium Level 141, White Blood Count 9.85 MICRO 09/24 Urine culture Normal urogenital johnathan IMAGING 09/22/16 CHEST PA/LAT (2 VIEW)* INDICATION: Malaise, weight loss. COMPARISON: None available. FINDINGS: Right hemidiaphragm eventration; otherwise, the lung volumes are normal. No focal airspace disease. No pleural effusion or pneumothorax. Cardiomegaly with left pectoral transvenous pacemaker with leads in the right atrium and right ventricle. Atherosclerosis of the aorta. Age related degenerative changes in the spine. IMPRESSION: 1. No acute cardiopulmonary process. 2. Cardiomegaly with left pectoral pacemaker in place. 09/22/16 KUB: (Reviewed from office.) Constipation but no obstructive process. ASSESSMENT Raven Pierson is a 86 year old female admitted from clinic 09/22 with malaise, increased confusion, reports of intermittent abdominal pain, decreased appetite , and unintentional weight loss. She had evidence of constipation on x-ray in office, had hypokalemia, evidence for mild UTI, and she had elevation of ESR and CRP. PLAN * Malaise: Broad differential. CRP and ESR elevated K is mildly low but otherwise no definitive etiology identified thus far. * Unintentional Weight Loss: Broad differential. Protein and albumin were not low. Hypokalemia noted but other labs reassuring. Machine Programmer for calorie count. Assess food security. * Leukocytosis, Elevated ESR, Elevated CRP: Uncertain cause. Had 1+ LE on UA but denied dysuria. Treat empirically for UTI x 3 days. If all not improving, consider additional workup. * Simple UTI: On the basis of UA. Culture grew normal urogenital johnathan. Allergy to PCN and sulfa noted. Avoided quinolone due to dementia. Cefdinir x 3 days. * Abdominal Pain: None apparent on admission but has some evidence for constipation. Treat constipation. Acetaminophen for pain. * Hypokalemia: Resolved. Adverse effect from HCTZ? Was reportedly getting furosemide prior to this admit. Hold HCTZ. Mg normal. PO supplement. Monitored trend. * Deconditioning: PT/OT eval and treat. Poor performance on SLUMS but she's already in good quality assisted living. * F/E/N: General diet. I&O, daily weight. Machine Programmer consult. * Prophylaxis: Enoxaparin * Code Status: Full * Dispo: Observation, expecting 48 hour stay. If no new issues, discharge to assisted living at [facility] in AM. CHRONIC ISSUES * Hypothyroidism: TSH normal. Levothyroxine * Dementia: Donepezil * Osteoporosis: Raloxifene * HLD: Atorvastatin (sub for rosuvastatin) * CHF: Uncertain type. Not apparently exacerbated. Not on beta carlos a. Continue lisinopril. NT-pro-BNP not elevated. Check with PCP's office for prior echo. * HTN: Lisinopril, HCTZ. TATE MARTIN MD Sep 24, 2016 16:10
--- NOTE | 2016-09-24 19:52 | Progress Note (E) ---
Progress Note Notified this evening by RN that patient had a BM that appeared to have some blood in it. Had no prior reports of blood in stool. Check stool for occult blood, monitor Hgb trend and check coag profile. In AM, explore further history regarding GI bleed. TATE MARTIN MD Sep 24, 2016 19:52
[2016-09-25] VITALS: BP 144/65
[2016-09-25] MEDS: LEVOTHYROXINE 50 MCG (LEVOTHROID) TABLET PO SCH (06:05)
[2016-09-25 06:17] LABS: BASOPHILS % (AUTO) 0 % (0-2); EOSINOPHILS # (AUTO) 0.1 10^3uL; EOSINOPHILS % (AUTO) 2 % (0-4); LYMPHOCYTES # (AUTO) 1.4 X10^3; MEAN CORPUSCULAR HEMOGLOBIN 29.1 PG (26.0-34.0); MEAN CORPUSCULAR HGB CONC 32.4 g/dL (31.0-37.0); MEAN CORPUSCULAR VOLUME 90 FL (80-100); MEAN PLATELET VOLUME 10.1 FL (6.0-9.5); MONOCYTES # (AUTO) 0.7 X10^3; MONOCYTES % (AUTO) 9 % (3-11); NEUTROPHILS # (AUTO) 5.6 X10^3; NEUTROPHILS % (AUTO) 72 % (51-67); PLATELET COUNT 319 10^3uL (150-450); WHITE BLOOD COUNT 7.77 10^3uL (4.0-11.0)
[2016-09-25 06:29] LABS: ALBUMIN 3.3 g/dL (3.4-5.0); ANION GAP 11.4 MEQ/L (3-15)
[2016-09-25 07:27] VITALS: BP 156/73
[2016-09-25] MEDS: DOCUSATE SODIUM 100 MG (COLACE) CAP PO SCH (08:20)
[2016-09-25] MEDS: ATORVASTATIN 10 MG (LIPITOR) TABLET PO SCH (08:20)
[2016-09-25] MEDS: MULTIVITAMIN W/MINERALS (THERAGRAN M) TABLET PO SCH (08:20)
[2016-09-25] MEDS: OMEGA-3 ACID ETHYL ESTERS 1 GM (LOVAZA) CAPSULE PO SCH (08:21)
[2016-09-25] MEDS: DONEPEZIL 10 MG (ARICEPT) TAB PO SCH (08:21)
[2016-09-25] MEDS: ENOXAPARIN 40 MG/0.4 ML (LOVENOX) SYR SC SCH (08:21)
[2016-09-25] MEDS: lisINopril 20 MG (PRINIVIL) TABLET PO SCH (08:21)
[2016-09-25] MEDS: POLYETHYLENE GLYCOL 17 GM (MIRALAX) PACKET PO SCH (08:21)
[2016-09-25] MEDS: CEFDINIR 300 MG (OMNICEF) CAPSULE PO SCH (08:30)
[2016-09-25] MEDS: NS FLUSH 3 ML DAILY IV SCH (08:31)
[2016-09-25] MEDS ORDERED: CEFD300C PO (11:12)
[2016-09-25] MEDS ORDERED: POTA10CA2 PO (11:12)
[2016-09-25] MEDS ORDERED: AC325T PO (11:12)
[2016-09-25] MEDS ORDERED: DOCU100C8 PO (11:19)
[2016-09-25] MEDS ORDERED: MAGN400O7 PO (11:19)
[2016-09-25] MEDS ORDERED: POLY17PO2 PO (11:19)
--- NOTE | 2016-09-25 11:22 | Discharge Instructions (E) ---
Discharge Instructions Instructions * You were evaluated for weakness and fatigue. You were found to have a low potassium and mild urinary tract infection which may have contributed to your symptoms. * For low potassium, this may be due to taking furosemide while taking hydrochlorothiazide. Both medications can lower your potassium. For now, hold furosemide. Continue lisinopril-hydrochlorothiazide and have your chemistry checked in your primary care office in 1 week. A short course of potassium has also been prescribed. Your doctor will need to determine if your potassium is stabilizing. If it remains low, it may be necessary to stop hydrochlorothiazide. Alternative, your dose of potassium supplement could be increased if your doctor decides this is needed. * For urinary tract infection, you were given antibiotic in hospital. You only need to take 1 more dose of cefdinir at bedtime 09/25 to complete your course. Your urine culture did not grow any specific bacteria. * There was a concern that you may have blood in your stool but your stool was checked in the lab and it did not test positive for blood. Your hemoglobin ( blood count) was stable and your blood was not too thin. Be sure to report to your doctor if you notice any blood in your stool. * You had some constipation during this admission. It is recommended you continue [id number] agents as needed for constipation. * It is important to monitor your weight. Check it at least every other day at home, in the morning, after your first morning void. Record the readings for review by your primary care doctor. Seek medical attention if you notice increased leg swelling, cough, shortness of breath, chest pain, palpitations, or weight increase > 5 pounds. Review the provided handout about heart failure for details. Activity Instructions As tolerated. Doctor's Appointment Follow-up with your primary care doctor in 1 week. Have your labs checked during that office visit. Discharge Diet: Heart Healthy TATE MARTIN MD Sep 25, 2016 11:22
--- NOTE | 2016-09-25 11:26 | Progress Note (E) ---
Progress Note SUBJECTIVE Notified by RN last night of concern of blood in stools. This AM, RN wonders if maybe redness is from antibiotic. Cefdinir is not typically associated with this adverse reaction. She had another BM that was negative for occult blood. Hgb 11.8 this AM but was 12.0 yesterday and she has had labs drawn every day since admit. K 3.4, mildly low still be stable. CRP 6, down from 8.8 on admit. Rv Technician received from clinic and reviewed. OBJECTIVE Vital Signs Date Time Temp Pulse Resp B/P Pulse Ox O2 Delivery O2 Flow Rate FiO2 09/25/16 07:27 96.6 72 12 156/73 96 Room air I & O 09/24/16 09/25/16 Cumulative From/Thru 19:00 07:00 09/22/16 18:15 - 09/25/16 06:44 Intake Total 593 ml 150 ml 1954 ml Output Total 100 ml 900 ml Balance 593 ml 50 ml 1054 ml GEN: Resting in bed. Stirs readily to exam. Denies new complaints. HEENT: EOMI, clear sclerae, mildly dry oral mucosa. CV: RRR S1 S2 normal with no murmur LUNGS: CTA B with mildly diminished bases but no R/R/W. ABD: Soft, NT/ND with normal bowel sounds. EXTR: Trace ankle edema. Normal peripheral pulses. INTEG: No rash. Age related changes. Warm, dry, well-perfused. Dry skin on legs. NEURO: No focal motor neuro deficit. Mild psychomotor slowing. Lab-Past 14 Days, 35 Results 09/22/16 17:12: Alanine Aminotransferase (ALT/SGPT) 38, Albumin 4.1#, Albumin/Globulin Ratio 1.078L, Alkaline Phosphatase 85, Anion Gap 19.2H, Aspartate Amino Transf (AST/ SGOT) 32, BUN/Creatinine Ratio 11, Blood Urea Nitrogen 11, C-Reactive Protein 8.80H, Calcium Level 9.8, Calcium/Ionized Calcium Ratio 4.1, Calculated Osmolality 268L, Carbon Dioxide Level 30H, Chloride Level 93L, Creatinine 0.99, Estimat Glomerular Filtration Rate 64.1, Estimated GFR (Non- 52.9, Glucose Level 104, LN-Fbk-Y-Type Natriuretic Peptide 243, Potassium Level 2.9L, Sodium Level 139, Thyroid Stimulating Hormone (TSH) 2.17#, Total Bilirubin 0.7#, Total Protein 7.9 09/22/16 17:22: Basophils # (Auto) 0.0, Basophils (%) (Auto) 0, Eosinophils # (Auto) 0.0, Eosinophils (%) (Auto) 0, Erythrocyte Sedimentation Rate 72H, Hematocrit 41.60, Hemoglobin 13.6, Lymphocytes # (Auto) 1.3, Lymphocytes (%) (Auto) 10L, Mean Corpuscular Hemoglobin 29.1, Mean Corpuscular Hemoglobin Concent 32.7, Mean Corpuscular Volume 89, Mean Platelet Volume 10.6H, Monocytes # (Auto) 0.9, Monocytes (%) (Auto) 7, Neutrophils # (Auto) 10.7, Neutrophils (%) (Auto) 83H, Platelet Count 360, Red Blood Count 4.68, Red Cell Distribution Width 13.7, White Blood Count 12.92H 09/23/16 05:20: Urine Bacteria None seen, Urine Bilirubin Negative, Urine Blood Negative, Urine Clarity Clear, Urine Collection Type Clean catch, Urine Color Yellow, Urine Glucose (UA) Negative, Urine Ketones 1+H, Urine Leukocyte Esterase 1+H, Urine Microscopic RBC None seen, Urine Nitrite Negative, Urine Protein Negative, Urine Specific [place] 1.015, Urine Squamous Epithelial Cells 0-2, Urine Urobilinogen 0.2, Urine WBC 5-10H, Urine pH 7.5, Volume Urine Centrifuged <10ml unspun 09/23/16 08:56: Anion Gap 16.6H, BUN/Creatinine Ratio 13, Blood Urea Nitrogen 11, Calcium Level 9.4, Carbon Dioxide Level 30H, Chloride Level 95L, Creatinine 0.84, Estimat Glomerular Filtration Rate 77.4, Estimated GFR (Non- 64.0, Glucose Level 105, Potassium Level 3.2L, Sodium Level 139, Basophils # (Auto) 0.0, Basophils (%) (Auto) 0, Eosinophils # (Auto) 0.1, Eosinophils (%) (Auto) 1 , Hematocrit 39.50, Hemoglobin 13.0, Lymphocytes # (Auto) 1.3, Lymphocytes (%) ( Auto) 11L, Mean Corpuscular Hemoglobin 28.7, Mean Corpuscular Hemoglobin Concent 32.9, Mean Corpuscular Volume 87, Mean Platelet Volume 9.9H, Monocytes # (Auto) 0.8, Monocytes (%) (Auto) 7, Neutrophils # (Auto) 9.2, Neutrophils (%) (Auto) 80H, Platelet Count 322, Red Blood Count 4.53, Red Cell Distribution Width 13.5, White Blood Count 11.52H, Magnesium Level 2.0 09/24/16 05:40: Albumin 3.3L, Anion Gap 13.8, Basophils # (Auto) 0.0, Basophils (%) (Auto) 0, Blood Urea Nitrogen 9, Calcium Level 8.7L, Carbon Dioxide Level 33H, Chloride Level 98, Creatinine 0.94, Eosinophils # (Auto) 0.1, Eosinophils (%) (Auto) 1, Estimat Glomerular Filtration Rate 68.0, Estimated GFR (Non- 56.2, Glucose Level 92, Hematocrit 37.10, Hemoglobin 12.0, Lymphocytes # (Auto) 1.3, Lymphocytes (%) (Auto) 13L, Magnesium Level 2.4H, Mean Corpuscular Hemoglobin 28.7, Mean Corpuscular Hemoglobin Concent 32.3, Mean Corpuscular Volume 89, Mean Platelet Volume 10.3H, Monocytes # (Auto) 0.8, Monocytes (%) ( Auto) 8, Neutrophils # (Auto) 7.6, Neutrophils (%) (Auto) 77H, Phosphorus Level 3.2, Platelet Count 314, Potassium Level 3.4L, Red Blood Count 4.18, Red Cell Distribution Width 13.6, Sodium Level 141, White Blood Count 9.85 09/25/16 05:25: Albumin 3.3L, Anion Gap 11.4, Basophils # (Auto) 0.0, Basophils (%) (Auto) 0, Blood Urea Nitrogen 10, Calcium Level 8.6L, Carbon Dioxide Level 33H, Chloride Level 101, Creatinine 0.95, Eosinophils # (Auto) 0.1, Eosinophils (%) (Auto) 2, Estimat Glomerular Filtration Rate 67.2, Estimated GFR (Non- 55.5, Glucose Level 93, Hematocrit 36.40, Hemoglobin 11.8L, Lymphocytes # (Auto ) 1.4, Lymphocytes (%) (Auto) 18L, Mean Corpuscular Hemoglobin 29.1, Mean Corpuscular Hemoglobin Concent 32.4, Mean Corpuscular Volume 90, Mean Platelet Volume 10.1H, Monocytes # (Auto) 0.7, Monocytes (%) (Auto) 9, Neutrophils # ( Auto) 5.6, Neutrophils (%) (Auto) 72H, Phosphorus Level 3.3, Platelet Count 319 , Potassium Level 3.4L, Red Blood Count 4.06, Red Cell Distribution Width 13.7, Sodium Level 142, White Blood Count 7.77, Activated Partial Thromboplast Time 26.6, C-Reactive Protein 6.00H, Prothromb Time International Ratio 1.1, Prothrombin Time 11.9 09/25/16 08:20: Stool Occult Blood Negative MICRO 09/24 Urine culture Normal urogenital johnathan IMAGING 09/22/16 CHEST PA/LAT (2 VIEW)* INDICATION: Malaise, weight loss. COMPARISON: None available. FINDINGS: Right hemidiaphragm eventration; otherwise, the lung volumes are normal. No focal airspace disease. No pleural effusion or pneumothorax. Cardiomegaly with left pectoral transvenous pacemaker with leads in the right atrium and right ventricle. Atherosclerosis of the aorta. Age related degenerative changes in the spine. IMPRESSION: 1. No acute cardiopulmonary process. 2. Cardiomegaly with left pectoral pacemaker in place. 09/22/16 KUB: (Reviewed from office.) Constipation but no obstructive process. REFERENCE 09/27/2014 ECHO: Summary: 1. LVEF estimated to be 50-55%. 2. Normal RV size, wall thickness, and systolic function. 3. Left atrium mildly dilated. 4. Small to moderate anterior located pericardial effusion, no tamponade physiology noted. 5. Mild mitral annular calcification. 6. Moderate calcification of the aortic valve. 7. Mild pulmonary valve regurgitation. 8. Mild tricuspid valve regurgitation. ASSESSMENT Raven Pierson is a 86 year old female admitted from clinic 09/22 with malaise, increased confusion, reports of intermittent abdominal pain, decreased appetite , and unintentional weight loss. She had evidence of constipation on x-ray in office, had hypokalemia, evidence for mild UTI, and she had elevation of ESR and CRP. PLAN * Malaise: Broad differential. CRP and ESR elevated and K was mildly low. Perhaps UTI and electrolyte abnormalities were the main issue. No other definitive etiology identified thus far. Has underlying dementia. * Unintentional Weight Loss: Broad differential. Protein and albumin were not low. Hypokalemia noted but other labs reassuring. Weight stable this admission. Lives in assisted living so has food security. Monitor weight closely after discharge. * Leukocytosis, Elevated ESR, Elevated CRP: Attributed to UTI. Treated empirically for UTI x 3 days. If not improving overall, consider additional workup. Recheck in 1 week. * Simple UTI: On the basis of UA. Culture grew normal urogenital johnathan. Allergy to PCN and sulfa noted. Avoided quinolone due to dementia. Cefdinir x 3 days. * Abdominal Pain: None apparent on admission but has some evidence for constipation. Treat constipation. Acetaminophen for pain. * Constipation: Bowel regimen. * Hypokalemia: Resolved. Adverse effect from HCTZ? Was reportedly getting furosemide prior to this admit. Hold HCTZ. Mg normal. PO supplement. Monitored trend. * Deconditioning: PT/OT eval and treat. Poor performance on SLUMS but she's already in good quality assisted living. * F/E/N: General diet. I&O, daily weight. Rack Worker consult. * Prophylaxis: Enoxaparin * Code Status: Full * Dispo: Observation. Discharged to assisted living 09/25. CHRONIC ISSUES * Hypothyroidism: TSH normal. Levothyroxine * Dementia: Donepezil * Osteoporosis: Raloxifene * HLD: Atorvastatin (sub for rosuvastatin) * Chroncic Systolic CHF: No apparent acute exacerbation noted. NT-pro-BNP not elevated. LVEF 50% on echo 2014. Not on beta carlos a. Continue lisinopril. Hold furosemide because of hypokalemia. * HTN: Lisinopril, HCTZ. TATE MARTIN MD Sep 25, 2016 11:22
[2016-09-25] MEDS: VIT A,C & E/LUTEIN/MINERALS (I-VITE) TABLET PO SCH (12:14)
[2016-09-25] MEDS: ASPIRIN 81 MG CHEW (LOW-DOSE) PO SCH (12:14)
--- NOTE | 2016-09-27 20:58 | Discharge Summary (E) ---
Discharge Summary (E) Admit Date/Time Sep 22, 2016 at 18:02 Discharge Date/Time Sep 25, 2016 at 13:40 Admitting Provider Vahid Samson MD Primary Care Provider Edson Ham MD Attending Provider Vahid Samson MD Consulting Provider History and Present Illness Raven Pierson is a 86 year old female admitted from clinic 09/22 with malaise, increased confusion, reports of intermittent abdominal pain, decreased appetite , and unintentional weight loss. She had evidence of constipation on x-ray in office, had hypokalemia, evidence for mild UTI, and she had elevation of ESR and CRP. Urine grew normal urogenital johnathan. She improved with cefdinir. Abdominal pain seemed to have resolved. She had BMs before discharge. She returned to assisted living in improved, stable condition. Hospital Course and Treatment * Malaise: Broad differential. CRP and ESR elevated and K was mildly low. Perhaps UTI and electrolyte abnormalities were the main issue. No other definitive etiology identified thus far. Has underlying dementia. * Unintentional Weight Loss: Broad differential. Protein and albumin were not low. Hypokalemia noted but other labs reassuring. Weight stable this admission. Albumin was normal on admit. Lives in assisted living so has food security. Monitor weight closely after discharge. * Leukocytosis, Elevated ESR, Elevated CRP: Attributed to UTI. Treated empirically for UTI x 3 days. If not improving overall, consider additional workup. Recheck in 1 week. * Simple UTI: On the basis of UA. Culture grew normal urogenital johnathan. Allergy to PCN and sulfa noted. Avoided quinolone due to dementia. Cefdinir x 3 days. * Abdominal Pain: None apparent on admission but has some evidence for constipation. Treated constipation. Acetaminophen for pain but this was essentially resolved. * Constipation: Bowel regimen. Had 4 BM before discharge. * Hypokalemia: Resolved. Adverse effect from HCTZ? Was reportedly getting furosemide prior to this admit. Held HCTZ. Mg normal. Gave PO K supplement. Monitored trend. * Deconditioning: PT/OT eval and treat. Poor performance on SLUMS but she's already in good quality assisted living. * F/E/N: General diet. I&O, daily weight. [employer]or consult. * Prophylaxis: Enoxaparin * Code Status: Full * Dispo: Observation. Discharged to assisted living 09/25. CHRONIC ISSUES * Hypothyroidism: TSH normal. Levothyroxine * Dementia: Donepezil * Osteoporosis: Raloxifene * HLD: Atorvastatin (sub for rosuvastatin) * Chroncic Systolic CHF: No apparent acute exacerbation noted. NT-pro-BNP not elevated. LVEF 50% on echo 2014. Not on beta carlos a. Continue lisinopril. Hold furosemide because of hypokalemia. * HTN: Lisinopril, HCTZ. Discharge Physicial Exam General Vital Signs Date Time Temp Pulse Resp B/P Pulse Ox O2 Delivery O2 Flow Rate FiO2 09/25/16 07:27 96.6 72 12 156/73 96 Room air I & O 09/24/16 09/25/16 Cumulative From/Thru 19:00 07:00 09/22/16 18:15 - 09/25/16 06:44 Intake Total 593 ml 150 ml 1954 ml Output Total 100 ml 900 ml Balance 593 ml 50 ml 1054 ml GEN: Resting in bed. Stirs readily to exam. Denies new complaints. HEENT: EOMI, clear sclerae, mildly dry oral mucosa. CV: RRR S1 S2 normal with no murmur LUNGS: CTA B with mildly diminished bases but no R/R/W. ABD: Soft, NT/ND with normal bowel sounds. EXTR: Trace ankle edema. Normal peripheral pulses. INTEG: No rash. Age related changes. Warm, dry, well-perfused. Dry skin on legs. NEURO: No focal motor neuro deficit. Mild psychomotor slowing. Discharge weight: 72.2 kg Laboratory/Radiology Data Lab-Past 14 Days, 35 Results 09/22/16 17:12: Alanine Aminotransferase (ALT/SGPT) 38, Albumin 4.1#, Albumin/Globulin Ratio 1.078L, Alkaline Phosphatase 85, Anion Gap 19.2H, Aspartate Amino Transf (AST/ SGOT) 32, BUN/Creatinine Ratio 11, Blood Urea Nitrogen 11, C-Reactive Protein 8.80H, Calcium Level 9.8, Calcium/Ionized Calcium Ratio 4.1, Calculated Osmolality 268L, Carbon Dioxide Level 30H, Chloride Level 93L, Creatinine 0.99, Estimat Glomerular Filtration Rate 64.1, Estimated GFR (Non- 52.9, Glucose Level 104, TQ-Bte-F-Type Natriuretic Peptide 243, Potassium Level 2.9L, Sodium Level 139, Thyroid Stimulating Hormone (TSH) 2.17#, Total Bilirubin 0.7#, Total Protein 7.9 09/22/16 17:22: Basophils # (Auto) 0.0, Basophils (%) (Auto) 0, Eosinophils # (Auto) 0.0, Eosinophils (%) (Auto) 0, Erythrocyte Sedimentation Rate 72H, Hematocrit 41.60, Hemoglobin 13.6, Lymphocytes # (Auto) 1.3, Lymphocytes (%) (Auto) 10L, Mean Corpuscular Hemoglobin 29.1, Mean Corpuscular Hemoglobin Concent 32.7, Mean Corpuscular Volume 89, Mean Platelet Volume 10.6H, Monocytes # (Auto) 0.9, Monocytes (%) (Auto) 7, Neutrophils # (Auto) 10.7, Neutrophils (%) (Auto) 83H, Platelet Count 360, Red Blood Count 4.68, Red Cell Distribution Width 13.7, White Blood Count 12.92H 09/23/16 05:20: Urine Bacteria None seen, Urine Bilirubin Negative, Urine Blood Negative, Urine Clarity Clear, Urine Collection Type Clean catch, Urine Color Yellow, Urine Glucose (UA) Negative, Urine Ketones 1+H, Urine Leukocyte Esterase 1+H, Urine Microscopic RBC None seen, Urine Nitrite Negative, Urine Protein Negative, Urine Specific [place] 1.015, Urine Squamous Epithelial Cells 0-2, Urine Urobilinogen 0.2, Urine WBC 5-10H, Urine pH 7.5, Volume Urine Centrifuged <10ml unspun 09/23/16 08:56: Anion Gap 16.6H, BUN/Creatinine Ratio 13, Blood Urea Nitrogen 11, Calcium Level 9.4, Carbon Dioxide Level 30H, Chloride Level 95L, Creatinine 0.84, Estimat Glomerular Filtration Rate 77.4, Estimated GFR (Non- 64.0, Glucose Level 105, Potassium Level 3.2L, Sodium Level 139, Basophils # (Auto) 0.0, Basophils (%) (Auto) 0, Eosinophils # (Auto) 0.1, Eosinophils (%) (Auto) 1 , Hematocrit 39.50, Hemoglobin 13.0, Lymphocytes # (Auto) 1.3, Lymphocytes (%) ( Auto) 11L, Mean Corpuscular Hemoglobin 28.7, Mean Corpuscular Hemoglobin Concent 32.9, Mean Corpuscular Volume 87, Mean Platelet Volume 9.9H, Monocytes # (Auto) 0.8, Monocytes (%) (Auto) 7, Neutrophils # (Auto) 9.2, Neutrophils (%) (Auto) 80H, Platelet Count 322, Red Blood Count 4.53, Red Cell Distribution Width 13.5, White Blood Count 11.52H, Magnesium Level 2.0 09/24/16 05:40: Albumin 3.3L, Anion Gap 13.8, Basophils # (Auto) 0.0, Basophils (%) (Auto) 0, Blood Urea Nitrogen 9, Calcium Level 8.7L, Carbon Dioxide Level 33H, Chloride Level 98, Creatinine 0.94, Eosinophils # (Auto) 0.1, Eosinophils (%) (Auto) 1, Estimat Glomerular Filtration Rate 68.0, Estimated GFR (Non- 56.2, Glucose Level 92, Hematocrit 37.10, Hemoglobin 12.0, Lymphocytes # (Auto) 1.3, Lymphocytes (%) (Auto) 13L, Magnesium Level 2.4H, Mean Corpuscular Hemoglobin 28.7, Mean Corpuscular Hemoglobin Concent 32.3, Mean Corpuscular Volume 89, Mean Platelet Volume 10.3H, Monocytes # (Auto) 0.8, Monocytes (%) ( Auto) 8, Neutrophils # (Auto) 7.6, Neutrophils (%) (Auto) 77H, Phosphorus Level 3.2, Platelet Count 314, Potassium Level 3.4L, Red Blood Count 4.18, Red Cell Distribution Width 13.6, Sodium Level 141, White Blood Count 9.85 09/25/16 05:25: Albumin 3.3L, Anion Gap 11.4, Basophils # (Auto) 0.0, Basophils (%) (Auto) 0, Blood Urea Nitrogen 10, Calcium Level 8.6L, Carbon Dioxide Level 33H, Chloride Level 101, Creatinine 0.95, Eosinophils # (Auto) 0.1, Eosinophils (%) (Auto) 2, Estimat Glomerular Filtration Rate 67.2, Estimated GFR (Non- 55.5, Glucose Level 93, Hematocrit 36.40, Hemoglobin 11.8L, Lymphocytes # (Auto ) 1.4, Lymphocytes (%) (Auto) 18L, Mean Corpuscular Hemoglobin 29.1, Mean Corpuscular Hemoglobin Concent 32.4, Mean Corpuscular Volume 90, Mean Platelet Volume 10.1H, Monocytes # (Auto) 0.7, Monocytes (%) (Auto) 9, Neutrophils # ( Auto) 5.6, Neutrophils (%) (Auto) 72H, Phosphorus Level 3.3, Platelet Count 319 , Potassium Level 3.4L, Red Blood Count 4.06, Red Cell Distribution Width 13.7, Sodium Level 142, White Blood Count 7.77, Activated Partial Thromboplast Time 26.6, C-Reactive Protein 6.00H, Prothromb Time International Ratio 1.1, Prothrombin Time 11.9 09/25/16 08:20: Stool Occult Blood Negative MICRO 09/24 Urine culture Normal urogenital johnathan IMAGING 09/22/16 CHEST PA/LAT (2 VIEW)* INDICATION: Malaise, weight loss. COMPARISON: None available. FINDINGS: Right hemidiaphragm eventration; otherwise, the lung volumes are normal. No focal airspace disease. No pleural effusion or pneumothorax. Cardiomegaly with left pectoral transvenous pacemaker with leads in the right atrium and right ventricle. Atherosclerosis of the aorta. Age related degenerative changes in the spine. IMPRESSION: 1. No acute cardiopulmonary process. 2. Cardiomegaly with left pectoral pacemaker in place. 09/22/16 KUB: (Reviewed from office.) Constipation but no obstructive process. REFERENCE 09/27/2014 ECHO: Summary: 1. LVEF estimated to be 50-55%. 2. Normal RV size, wall thickness, and systolic function. 3. Left atrium mildly dilated. 4. Small to moderate anterior located pericardial effusion, no tamponade physiology noted. 5. Mild mitral annular calcification. 6. Moderate calcification of the aortic valve. 7. Mild pulmonary valve regurgitation. 8. Mild tricuspid valve regurgitation. Discharge Disposition Discharged to assisted living. Instructions * You were evaluated for weakness and fatigue. You were found to have a low potassium and mild urinary tract infection which may have contributed to your symptoms. * For low potassium, this may be due to taking furosemide while taking hydrochlorothiazide. Both medications can lower your potassium. For now, hold furosemide. Continue lisinopril-hydrochlorothiazide and have your chemistry checked in your primary care office in 1 week. A short course of potassium has also been prescribed. Your doctor will need to determine if your potassium is stabilizing. If it remains low, it may be necessary to stop hydrochlorothiazide. Alternative, your dose of potassium supplement could be increased if your doctor decides this is needed. * For urinary tract infection, you were given antibiotic in hospital. You only need to take 1 more dose of cefdinir at bedtime 09/25 to complete your course. Your urine culture did not grow any specific bacteria. * There was a concern that you may have blood in your stool but your stool was checked in the lab and it did not test positive for blood. Your hemoglobin ( blood count) was stable and your blood was not too thin. Be sure to report to your doctor if you notice any blood in your stool. * You had some constipation during this admission. It is recommended you continue [id number] agents as needed for constipation. * It is important to monitor your weight. Check it at least every other day at home, in the morning, after your first morning void. Record the readings for review by your primary care doctor. Seek medical attention if you notice increased leg swelling, cough, shortness of breath, chest pain, palpitations, or weight increase > 5 pounds. Review the provided handout about heart failure for details. Activity Instructions As tolerated. Appointments Follow-up with your primary care doctor in 1 week. Have your labs checked during that office visit. Discharge Diet: Heart Healthy Discharge Medications New Medications: Potassium Chloride (Potassium Chloride ER) 10 Meq Capsule.er 10 MEQ PO DAILY #10 Ref 0 CAP Acetaminophen (Acetaminophen) 325 Mg Tablet 650 MG PO Q6H PRN PAIN #0 Ref 0 TAB Cefdinir (Cefdinir) 300 Mg Capsule 300 MG PO Q12HR Next dose at 2100 09/25. #1 Ref 0 CAP Docusate Sodium (Docusate Sodium) 100 Mg Capsule 100 MG PO BID PRN CONSTIPATION #0 Ref 0 CAP Magnesium Hydroxide (Milk of Magnesia 400mg/5ml) 400 Mg/5 Ml Oral.susp 30 ML PO DAILY PRN CONSTIPATION #0 Ref 0 ML Polyethylene Glycol 3350 (Miralax) 17 Gm Powd.pack 17 GM PO DAILY PRN CONSTIPATION #0 Ref 0 PACKET Continued Medications: Aspirin (Efren Chewable) 81 Mg Tab.chew 81 MG PO DAILY@1200 TAB.CHEW Calcium Carbonate (Calcium) 500 Mg Tablet 1000 MG PO DAILY@1200 TAB Donepezil HCl (Aricept) 10 Mg Tablet 10 MG PO DAILY TAB Ibuprofen (Ibuprofen IB) 200 Mg Tablet 200-400 MG PO QID PRN PAIN Ref 0 TAB Levothyroxine Sodium (Levothyroxine Sodium) 50 Mcg Tablet 50 MCG PO DAILY@0700 TAB Lisinopril/Hydrochlorothiazide (Lisinopril-HCTZ 20-12.5 mg Tab) 1 Each Tablet 2 TAB PO DAILY@1200 TAB Multivitamin (Multi-Vitamin Daily) 1 Each Tablet 1 TAB PO DAILY@1200 TAB [place] 3 Polyunsat Fatty Acids (Fish Oil) 1,000 Mg Cap 1000 MG PO DAILY@1200 CAP Raloxifene HCl (Evista) 60 Mg Tablet 60 MG PO DAILY@1200 TAB Rosuvastatin Calcium (Crestor) 20 Mg Tablet 20 MG PO DAILY@1200 TAB Vit A,C & E/Lutein/Minerals (Ocuvite Tablet) 1 Each Tablet 1 TAB PO DAILY@1200 TAB Discontinued Medications: Furosemide (Lasix) 20 Mg Tablet 20 MG PO DAILY Ref 0 TAB Follow up New Orders: CRP C REACTIVE PROTEIN* - Within 1 week ESR ERYTHROCYTE SED RATE - Within 1 week RENAL PROFILE - Within 1 week Discharge Diagnosis See list above. Problems: Copies to: End of Report . VAHID SAMSON MD Sep 27, 2016 20:58
== END 2016-09-25 13:40 ==
LOC: INTOOBSV 18:02 → MED/SURG 18:02
PROVIDERS: ADMIT Internal Medicine; ATTEND Internal Medicine
DX: N39.0 Urinary tract infection, site not specified (principal); E87.6 Hypokalemia; I11.0 Hypertensive heart disease with heart failure; I50.22 Chronic systolic (congestive) heart failure; R53.81 Other malaise; R63.4 Abnormal weight loss; F03.90 Unspecified dementia, unspecified severity, without behavioral disturbance, psychotic disturbance, mood disturbance, and anxiety; K59.00 Constipation, unspecified; E78.5 Hyperlipidemia, unspecified; E03.9 Hypothyroidism, unspecified; Z95.0 Presence of cardiac pacemaker
CPT/HCPCS: 36415; 71020; 80048; 80053; 80069; 81003; 81015; 82274; 83735; 83880; 84443; 85025; 85610; 85652; 85730; 86140; 87088; 97110; 97116; 97161; 97165; A9270; G8978; G8979; G8987; G8988; J1650; 96372

== ENCOUNTER → 2016-10-02 | Outpatient (REF) | payer MEDICARE ==
[~2016-10-02] MED LIST changes: +AC325T PO; +CEFD300C PO; +DOCU100C8 PO; +MAGN400O7 PO; +POLY17PO2 PO; +POTA10CA2 PO
[2016-10-02 17:44] LABS: ALBUMIN 3.4 g/dL (3.4-5.0); ANION GAP 15.6 MEQ/L (3-15)
== END ==
LOC: LAB 17:11
PROVIDERS: ATTEND Family Medicine
DX: I50.9 Heart failure, unspecified (principal); E87.6 Hypokalemia; R70.0 Elevated erythrocyte sedimentation rate; R79.82 Elevated C-reactive protein (CRP)
CPT/HCPCS: 80069; 83735; 85652; 86140

== ENCOUNTER → 2016-10-08 | Outpatient (CLI) | payer MEDICARE | LOC: RT 10:58 | PROVIDERS: ATTEND Family Medicine | DX: I49.9 Cardiac arrhythmia, unspecified (principal); I47.1 Supraventricular tachycardia | CPT/HCPCS: 93225 ==